=== PATIENT | male | born 1985 | race Caucasian/White ===

== ENCOUNTER 2018-01-16 13:39 | Emergency (ER) | payer BC ==
--- NOTE | 2018-01-16 13:45 | PDOC ---
Rapid Medical Evaluation Chief Complaint: Chest Pain Time Seen by Provider: 01/16/18 13:41 Medical Evaluation: 01/16/18 13:42 I have performed a brief in-person evaluation of this patient. The patient presents with a CC of: CP HPI: Pt is a 32 YO male who is complaining of CP. He states, "I was eating lunch and I feel like something is stuck after I ate." Pt denies personal or family CV hx. Pt able to handle oral secretions. Pain is a 5/10. Pertinent PE: Skin: Clear Lungs: Clear Heart: RRR Abd: Soft nontender MS. Moves all extremities Neuro: Alert Psych: Age appropriate. I have ordered the following: CV protocol The patient will proceed to main ED for further evaluation. Discharge Disposition - Diagnosis Chest pain Qualifiers: Chest pain type: unspecified Qualified Code(s): R07.9 - Chest pain, unspecified - Referrals - Patient Instructions - Post Discharge Activity
[2018-01-16 13:47] VITALS: BMI 24.6
[2018-01-16 14:29] LABS: EOS % 1.8 % (0-4.5); HEMATOCRIT 40.9 % (35.4-49); HEMOGLOBIN 14.6 GM/dL (11.7-16.9); LYMPH % 25.7 % (8-40); MCHC 35.6 g/dl (32.0-35.9); MEAN CELL VOLUME 87.2 fl (80-96); MEAN PLT VOLUME 9.8 fl (7.5-11.1); NEUT % 62.5 % (42.8-82.8); PLATELET COUNT 179 K/MM3 (134-434); RBC 4.69 M/mm3 (4.00-5.60); WHITE BLOOD COUNT 5.8 K/mm3 (4.0-10.0)
--- NOTE | 2018-01-16 14:30 | PDOC ---
History of Present Illness - General Chief Complaint: Chest Pain Stated Complaint: CHEST DISCOMFORT Time Seen by Provider: 01/16/18 13:41 - History of Present Illness Initial Comments: The patient is a 32M w/ no reported PMH who presents for evaluation of approximately 3-4 hours of chest discomfort s/p eating a Tutu. Since that time the patient reports lower 1/3 mid-sternal chest discomfort described as food stuck/he cannot move. He reports that he tried drinking water afterwards with no relief. He also tried forcing himself to vomit approximately 4 times with no relief in symptoms. He did not try taking anything for the sensation/ pain. He denies recent illness, fevers/chills, CUEVA, vision changes, SOB, abdominal pain , diarrhea/constipation, or changes in sensation 01/16/18 14:24 Past History - Past Medical History Allergies/Adverse Reactions: Allergies Allergy/AdvReac Type Severity Reaction Status Date / Time No Known Allergies Allergy Verified 01/16/18 13:42 Home Medications: Ambulatory Orders NK [No Known Home Medication] 01/16/18 COPD: No Other medical history: DENIES. - Suicide/Smoking/Psychosocial Hx Smoking History: Never smoked Review of Systems - Review of Systems Able to Perform ROS?: Yes Comments:: GENERAL/CONSTITUTIONAL: No fever or chills. No weakness HEAD, EYES, EARS, NOSE AND THROAT: No change in vision. No ear pain or discharge. No sore throat CARDIOVASCULAR: No shortness of breath RESPIRATORY: Denies cough, hemoptysis GASTROINTESTINAL: No nausea, diarrhea or constipation GENITOURINARY: No dysuria, frequency, or change in urination MUSCULOSKELETAL: No joint or muscle swelling or pain. No neck or back pain SKIN: No rash NEUROLOGIC: No headache, vertigo, loss of consciousness, or change in strength/ sensation ENDOCRINE: No increased thirst. No abnormal weight change HEMATOLOGIC/LYMPHATIC: No anemia, easy bleeding, or history of blood clots ALLERGIC/IMMUNOLOGIC: No hives or skin allergy 01/16/18 14:28 Is the patient limited Croatian proficient: No *Physical Exam - Vital Signs Last Vital Signs Temp Pulse Resp BP Pulse Ox 98 F 90 16 143/90 98 01/16/18 13:42 01/16/18 13:42 01/16/18 13:42 01/16/18 13:42 01/16/18 13:42 - Physical Exam Comments: GENERAL: Awake, alert, and fully oriented, in no acute distress HEAD: No signs of trauma, normocephalic, atraumatic EYES: PERRLA, EOMI, sclera anicteric, conjunctiva clear ENT: Hearing grossly normal, nares patent, oropharynx clear without exudates. Moist mucosa LUNGS: No distress, speaks full sentences, clear to auscultation bilaterally HEART: Regular rate and rhythm, normal S1 and S2, no murmurs appreciated, peripheral pulses normal and equal bilaterally ABDOMEN: Soft, nontender, normoactive bowel sounds. No guarding, no rebound EXTREMITIES : Normal inspection, Normal range of motion, no edema. No clubbing or cyanosis NEUROLOGICAL: Cranial nerves II through XII grossly intact. Normal speech, normal gait, no focal sensorimotor deficits SKIN: Warm, Dry, normal turgor, no rashes or lesions noted 01/16/18 14:29 Moderate Sedation - Procedure Monitoring Vital Signs: Procedure Monitoring Vital Signs Temperature 98 F 01/16/18 13:42 Pulse Rate 90 01/16/18 13:42 Respiratory Rate 16 01/16/18 13:42 Blood Pressure 143/90 01/16/18 13:42 O2 Sat by Pulse Oximetry (%) 98 01/16/18 13:42 ED Treatment Course - LABORATORY CBC & Chemistry Diagram: 01/16/18 14:18 01/16/18 14:18 Medical Decision Making - Medical Decision Making The patient is a 32M w/ no reported PMH who presents for evaluation of lower chest discomfort/pressure s/p eating a Tutu approximately 3-4 hours ago ED Course Labs, ECG, and CXR ordered from triage Will give christian cydney 01/16/18 14:30 Patient refused christian cydney Lytes wnl no leukocytosis no anemia CXR w/o acute pathology ECG w/ NSR, rate 82, QTc 436 01/16/18 15:35 Tolerated 1/2 can of christian cydney w/o emesis 01/16/18 17:06 Plan for D/C w/ PCP and GI f/u Discharge instructions and return precautions given Patient verbalized understanding and is in agreement Dispo: home *DC/Admit/Observation/Transfer Diagnosis at time of Disposition: Chest pain Qualifiers: Chest pain type: unspecified Qualified Code(s): R07.9 - Chest pain, unspecified - Discharge Dispostion Disposition: HOME Condition at time of disposition: Stable Decision to Admit order: No - Referrals Referrals: Julio Dove MD [Staff Physician] - [facility] [Provider Group] - Patient Instructions Printed Discharge Instructions: Esophageal Dysphagia Additional Instructions: You were seen in the Emergency Department for globus sensation (sensation of something being stuck in the esophagus). You were evaluated and your labs/ imaging was normal. Please review the handout provided at discharge. Please follow up with your primary care physician and with GI referral. Be sure to chew your food adequately and do not swallow your food prematurely. Return to the Emergency Department if you are unable to eat/drink, develop worsening symptoms, vomiting, diarrhea, trouble breathing, or any new/ concerning symptoms. - Post Discharge Activity Forms/Work/School Notes: Back to Work
--- NOTE | 2018-01-16 14:31 | PDOC ---
Attending Attestation - Resident Resident Name: Chris Costa - ED Attending Attestation I have performed the following: I have examined & evaluated the patient, The case was reviewed & discussed with the resident, I agree w/resident's findings & plan - HPI HPI: 01/16/18 16:27 Mr. Thomas is a 32-year-old male with no significant past medical history presents to the emergency department with mid-chest pain since after eating a Tutu sandwich about 3-4 hours [employer]. The patient reports the pain is localized to the lower substernal, feels like something is stuck mid-way. The patient reports drinking water and self-inducing emesis, without relief. Denies hx of heartburn or reflux. Allergies: NKDA PCP: None reported - Physicial Exam PE: 01/16/18 16:27 NAD, well appearing, MMM, nl conjunctiva, anicteric; neck supple. lungs clear, RRR, abdomen soft nontender. KELLER x4, no focal neuro deficits. No peripheral edema. normal color for ethnicity, WWP. - Medical Decision Making 01/16/18 16:27 vitals wnl. see HPI for details globus sensation, maintaining secretions and airway. abdomen nontender nondistended well appearing. labs and lytes wnl. offered christian cydney for CO2 and smooth muscle relaxation, declined. tolerating secretions so doubt obstruction or food bolus took down half can of carbonated drink, without emesis or output. told to chew through foods properly, in case of food getting stuck in esophagus. GI cs with Dr Dove, at pt's request as he was uncomfortable with DC yet, despite reassurance provided and supportive care measures. DC in stable condition. chew foods adequately, supportive care and avoid triggers outpatient GI followup to eval for stricturing or shatski rings. Dx globus sensation 01/16/18 17:07 01/16/18 17:08 01/18/18 07:36
[2018-01-16 14:38] LABS: INR 1.05 (0.83-1.09); PROTHROMBIN TIME (PATIENT) 12.4 SEC (9.7-13.0)
[2018-01-16 14:51] LABS: ALBUMIN 4.2 g/dl (3.4-5.0); ALK PHOS 73 U/L (45-117); ANION GAP 7 MMOL/L (8-16); BILIRUBIN,TOTAL 0.5 mg/dL (0.2-1); BLOOD UREA NITROGEN 21 mg/dL (7-18); CALCIUM 8.9 mg/dL (8.5-10.1); CHLORIDE 103 mmol/L (98-107); CO2 29 mmol/L (21-32); CREATININE 0.9 mg/dL (0.55-1.3); GLUCOSE,RANDOM 100 mg/dL (74-106); POTASSIUM 3.7 mmol/L (3.5-5.1); SGOT/AST 22 U/L (15-37); SGPT/ALT 31 U/L (13-61); SODIUM 138 mmol/L (136-145); TOT PROT 7.7 g/dl (6.4-8.2)
[2018-01-16 16:44] VITALS: BP 138/68; PULSE 82; TEMP 97.8
--- NOTE | 2018-01-17 10:29 | EKG ---
Test Reason : Blood Pressure : / mmHG Vent. Rate : 082 BPM Atrial Rate : 082 BPM P-R Int : 166 ms QRS Dur : 086 ms QT Int : 374 ms P-R-T Axes : 062 043 044 degrees QTc Int : 436 ms NORMAL SINUS RHYTHM POSSIBLE LEFT ATRIAL ENLARGEMENT NONSPECIFIC T WAVE ABNORMALITY ABNORMAL ECG NO PREVIOUS ECGS AVAILABLE Confirmed by KATIA OLSEN MD ([id number]) on 01/17/2018 10:29:39 AM Referred By: Confirmed By:KATIA OLSEN MD
== END 2018-01-16 17:21 | disposition home or self-care (01) ==
LOC: JER 13:39
DX: R07.9 Chest pain, unspecified (principal)
CPT/HCPCS: 36415; 71046-TC-FY; 80053; 82550; 83735; 84484; 85025; 85610; 93005; 93010; 99284-25